=== PATIENT | female | born 1950 | race Caucasian/White ===

== ENCOUNTER 2017-01-08 14:22 | Emergency (ER) | payer MEDICARE ==
[~2017-01-08] VITALS: Ht 152.4 cm; Wt 46.0 kg
[~2017-01-08 14:22] MED LIST: CEPH-368 PO; OMEP20TA62 PO; OXYC-302 PO
[2017-01-08] MEDS ORDERED: ONDANSETRON 2MG/ML, 2ML IVPush ONE (16:00)
[2017-01-08] MEDS ORDERED: MAALOX/HYOSCYAMINE/LIDOCAINE 45 ML BTL PO ONE (16:00)
[2017-01-08] MEDS ORDERED: SODIUM CHLORIDE 0.9% 1,000ML IVBOLUS ONE (16:00)
[2017-01-08] MEDS ORDERED: ONDANSETRON 2MG/ML, 2ML ONE (16:08)
[2017-01-08] MEDS ORDERED: MAALOX/HYOSCYAMINE/LIDOCAINE 45 ML BTL ONE (16:08)
[2017-01-08 16:22] LABS: PATH.CAST-FLAG NOT PRESENT; SPERM-FLAG NOT PRESENT; SRC-FLAG NOT PRESENT; XTAL-FLAG NOT PRESENT; YLC-FLAG NOT PRESENT
[2017-01-08 16:36] VITALS: BP 124/72
[2017-01-08 16:40] LABS: HEMATOCRIT 43.4 % (34.6-47.8); HEMOGLOBIN 14.7 g/dL (11.7-16.4)
[2017-01-08 16:41] LABS: DIFF TOTAL CELLS COUNTED 100 CELL DIFF
[2017-01-08 16:46] LABS: BLOOD UREA NITROGEN 8 mg/dL (7-18)
[2017-01-08 16:49] LABS: ASPARTATE AMINO TRANSFERASE 13 U/L (15-37)
[2017-01-08 17:07] LABS: VERIFY COUNTS? YES
== END 2017-01-08 17:41 | disposition home or self-care (01) ==
LOC: ED 17:30
DX: R31.29 Other microscopic hematuria (principal); K59.00 Constipation, unspecified; K21.9 Gastro-esophageal reflux disease without esophagitis; F17.210 Nicotine dependence, cigarettes, uncomplicated
CPT/HCPCS: 36415; 74020; 76700; 80053; 81001; 83690; 85025; 93005; 96361; 96374; 99285; J2405; J7030